=== PATIENT | male | born 1980 | race Two or more races ===

== ENCOUNTER 2017-09-01 08:40 | Emergency (ER) | payer SELFPAY ==
[2017-09-01] MEDS: HYDROcodone/APAP 5/325MG 1 TAB TABLET PO (10:14)
[2017-09-01] MEDS: IBUPROFEN 800 MG TABLET. PO (10:15)
== END 2017-09-01 10:42 | disposition home or self-care (01) ==
LOC: ER 08:40
DX: S09.93XA Unspecified injury of face, initial encounter (principal); X58.XXXA Exposure to other specified factors, initial encounter; Y93.89 Activity, other specified; Y99.8 Other external cause status; Y92.89 Other specified places as the place of occurrence of the external cause
CPT/HCPCS: 99283

== ENCOUNTER 2020-09-17 10:06 | Emergency (ER) | payer SELFPAY ==
[~2020-09-17] VITALS: Ht 175.3 cm; Wt 136.0 kg
[~2020-09-17 10:06] MED LIST: AMOX500C PO; HYDR-3164 PO
--- NOTE | 2020-09-17 10:27 | ED.ADGEN ---
Past Medical History Past Medical History: No Pertinent History Past Surgical History: No Surgical History Smoking Status: Current Every Day Smoker Alcohol Use: None Drug Use: None General Adult EDM: Chief Complaint: FLANK PAIN HPI: HPI: Patient is a 40 year old male coming in for left lower quadrant abdominal pain that woke her from sleep at 0330, patient then had some small loose bowel moveme nts and went back to sleep. Woke up again hours later with the pain. States he vomited one time that was nonbloody or bilious after he was try to make himself belch. Patient had dark-colored urine today, states he denies any dysuria or hematuria. Patient denies any history of kidney stones. Patient states the pain when he gets worse occasionally radiates to the testicles but denies any testicular pain at this time. No fevers or known sick contacts. No prior history of abdominal surgeries. States his last normal bowel movement was yesterday. Review of Systems: Review of Systems: All other systems within normal limits except for as noted in the HPI Current Medications: Current Medications Medications (Trade) Dose Ordered Sig/Oralia Start Time Stop Time Status Last Admin Dose Admin Info (CONTRAST GIVEN -- Rx MONITORING) 1 each PRN DAILY PRN 09/17/20 11:15 09/19/20 11:14 Iohexol (Omnipaque 300 Mg/ml) 75 ml 1X ONCE 09/17/20 11:00 09/17/20 11:02 DC 09/17/20 11:00 75 ML Ketorolac Tromethamine (Toradol 15mg Vial) 15 mg 1X ONCE 09/17/20 10:30 09/17/20 10:31 DC 09/17/20 10:53 15 MG Allergies: Allergies: Allergies Coded Allergies Type Severity Reaction Last Updated Verified No Known Drug Allergies 09/01/17 No Physical Exam: PE: Constitutional: Well developed, well nourished, no acute distress, non-toxic appearance. [] HENT: Normocephalic, atraumatic, bilateral external ears normal, nose normal. [] Eyes: PERRLA, conjunctiva normal, no discharge. [] Neck: No rigidity, supple, no stridor. [] Cardiovascular: Regular rate and rhythm, brisk cap refill [] Lungs & Thorax: Non labored symmetric respirations, no tachypnea or respiratory distress [] Abdomen: Soft, nondistended, left lower quadrant tenderness right above inguinal crease. No rebound tenderness. Normal testicular exam.. Skin: Warm, dry, no erythema, no rash. [] Back: Unremarkable Extremities: No deformities, range of motion grossly intact, no lower extremity edema [] Neurologic: Alert and oriented X 3, no focal deficits noted. [] Psychologic: Affect normal, judgement normal, mood normal. [] Current Patient Data: Labs: Laboratory Tests Test 09/17/20 10:05 09/17/20 10:24 Urine Collection Type Unknown Urine Color Brown Urine Clarity Turbid Urine pH (<5.0-8.0) Urine Specific [place] (1.000-1.030) Urine Protein mg/dL (NEG-TRACE) Urine Glucose (UA) mg/dL (NEG) Urine Ketones (Stick) mg/dL (NEG) Urine Blood (NEG) Urine Nitrite (NEG) Urine Bilirubin (NEG) Urine Urobilinogen Dipstick mg/dL (0.2 mg/dL) Urine Leukocyte Esterase (NEG) Urine RBC Tntc /HPF (0-2) Urine WBC 11-20 /HPF (0-4) Urine Squamous Epithelial Cells Few /LPF Urine Bacteria Few /HPF (0-FEW) Urine Mucus Mod /LPF White Blood Count 15.6 x10^3/uL (4.0-11.0) H Red Blood Count 4.58 x10^6/uL (4.30-5.70) Hemoglobin 14.0 g/dL (13.0-17.5) Hematocrit 40.3 % (39.0-53.0) Mean Corpuscular Volume 88 fL (79-100) Mean Corpuscular Hemoglobin 31 pg (25-35) Mean Corpuscular Hemoglobin Concent 35 g/dL (31-37) Red Cell Distribution Width 13.6 % (11.5-14.5) Platelet Count 303 x10^3/uL (140-400) Neutrophils (%) (Auto) 78 % (31-73) H Lymphocytes (%) (Auto) 14 % (24-48) L Monocytes (%) (Auto) 6 % (0-9) Eosinophils (%) (Auto) 1 % (0-3) Basophils (%) (Auto) 1 % (0-3) Neutrophils # (Auto) 12.1 x10^3/uL (1.8-7.7) H Lymphocytes # (Auto) 2.2 x10^3/uL (1.0-4.8) Monocytes # (Auto) 0.9 x10^3/uL (0.0-1.1) Eosinophils # (Auto) 0.2 x10^3/uL (0.0-0.7) Basophils # (Auto) 0.1 x10^3/uL (0.0-0.2) Sodium Level 143 mmol/L (136-145) Potassium Level 3.5 mmol/L (3.5-5.1) Chloride Level 106 mmol/L (98-107) Carbon Dioxide Level 28 mmol/L (21-32) Anion Gap 9 (6-14) Blood Urea Nitrogen 10 mg/dL (8-26) Creatinine 0.9 mg/dL (0.7-1.3) Estimated GFR (Cockcroft-Gault) 93.9 BUN/Creatinine Ratio 11 (6-20) Glucose Level 128 mg/dL (70-99) H Calcium Level 8.8 mg/dL (8.5-10.1) Total Bilirubin 0.4 mg/dL (0.2-1.0) Aspartate Amino Transferase (AST) 20 U/L (15-37) Alanine Aminotransferase (ALT) 30 U/L (16-63) Alkaline Phosphatase 123 U/L (46-116) H Total Protein 7.9 g/dL (6.4-8.2) Albumin 3.9 g/dL (3.4-5.0) Albumin/Globulin Ratio 1.0 (1.0-1.7) Lipase 54 U/L (73-393) L Laboratory Tests 09/17/20 10:24 Laboratory Tests 09/17/20 10:24 Vital Signs: Vital Signs Date Time Temp Pulse Resp B/P (MAP) Pulse Ox O2 Delivery O2 Flow Rate FiO2 09/17/20 11:43 86 158/81 (106) Room Air 09/17/20 10:55 98 09/17/20 10:12 97.9 22 97.9 EKG: EKG: [] Heart Score: C/O Chest Pain: No Risk Factors: Risk Factors: DM, Current or recent (<one month) smoker, HTN, HLP, family history of CAD, obesity. Risk Scores: Score 0 - 3: 2.5% MACE over next 6 weeks - Discharge Home Score 4 - 6: 20.3% MACE over next 6 weeks - Admit for Clinical Observation Score 7 - 10: 72.7% MACE over next 6 weeks - Early Invasive Strategies Radiology/Procedures: Radiology/Procedures: [facility] [address] [place] [address] IMAGING REPORT Signed PATIENT: MERCEDES JAMES ACCOUNT: [id number] : 1980 LOCATION: ER AGE: 40 SEX: M EXAM STATUS: REG ER ORD. PHYSICIAN: AVINASH PUTNAM MD REASON: LLQ pain PROCEDURE: CT ABD PELV W/ IV CONTRST ONLY EXAM: CT ABDOMEN/PELVIS WITH CONTRAST. HISTORY: Left lower quadrant pain. TECHNIQUE: Computed tomography of the abdomen and pelvis was performed after the intravenous administration of iodinated contrast. One or more of the following individualized dose reduction techniques were utilized for this examination: 1. Automated exposure control. 2. Adjustment of the mA and/or kV according to patient size. 3. Use of iterative reconstruction technique. COMPARISON: None. FINDINGS: Lung windows through the visualized portions of the bases reveal mild atelectasis. Bone windows reveal no suspicious lesions. Central canal stenosis appears moderate to severe at L5-S1. The liver, gallbladder, pancreas, adrenal glands, and spleen are unremarkable. There are no pathologically enlarged lymph nodes. A left distal ureteral calculus 1 cm proximal to the ureterovesical junction measures 3.5 mm. There is mild left pelvic caliectasis. Slightly delayed perfusion of the left kidney indicates a component of acute obstruction. Small left renal cysts appear benign and measure up to 1.8 cm. The right kidney is unr emarkable. Sigmoid diverticulosis is moderate. There is no small bowel obstruction. A small supraumbilical hernia contains only fat. IMPRESSION: 1. 3.5 mm left distal ureteral calculus with mild proximal obstructive findings. 2. Small supraumbilical hernia containing only fat. 3. Central canal stenosis appears at least moderate/severe at L5-S1. Electronically signed by: Alfred Babin MD (09/17/2020 11:42 AM) [id number] DICTATED and SIGNED BY: NOAM BABIN MD DATE: 09/17/20 [id number] 0 [] Course & Med Decision Making: Course & Med Decision Making Pertinent Labs and Imaging studies reviewed. (See chart for details) [] Holly Disclaimer: Holly Disclaimer: This electronic medical record was generated, in whole or in part, using a voice recognition dictation system. Departure Departure Impression: Primary Impression: Urolithiasis Disposition: HOME / SELF CARE / HOMELESS Condition: STABLE Referrals: NO PCP (PCP) Patient Instructions: Kidney Stones Additional Instructions: Follow-up with [facility] Call to draw an appointment at [phone] Scripts Hydrocodone Bit/Acetaminophen (HYDROCODONE-APAP 5-325 ) 1 Tab Tablet 1 TAB PO PRN Q6HRS PRN for PAIN for 5 Days, #15 TAB 0 Refills Prov: AVINASH PUTNAM MD 09/17/20 Ibuprofen (IBUPROFEN) 800 Mg Tablet 800 MG PO PRN Q6HRS PRN for PAIN, #30 TAB Prov: AVINASH PUTNAM MD 09/17/20 Tamsulosin Hcl (FLOMAX) 0.4 Mg Cap.er.24h 1 CAP PO DAILY for kidney stone, #30 CAP 11 Refills Prov: AVINASH PUTNAM MD 09/17/20 Ondansetron (ONDANSETRON ODT) 4 Mg Tab.rapdis 1 TAB PO PRN Q6-8HRS PRN for NAUSEA for 3 Days, #10 TAB Prov: AVINASH PUTNAM MD 09/17/20 AVINASH PUTNAM MD Sep 17, 2020 10:27
[2020-09-17] MEDS ORDERED: KETOROLAC 15 MG/ML VIAL. IVP ONE (10:30)
[2020-09-17 10:33] LABS: BASO # 0.1 x10^3/uL (0.0-0.2); BASO % 1 % (0-3); EOS # 0.2 x10^3/uL (0.0-0.7); EOS % 1 % (0-3); HEMATOCRIT 40.3 % (39.0-53.0); LYMPH # 2.2 x10^3/uL (1.0-4.8); LYMPH % 14 % (24-48); MEAN CORPUSCULAR HEMOGLOBIN 31 pg (25-35); MEAN CORPUSCULAR HGB CONC 35 g/dL (31-37); MEAN CORPUSCULAR VOLUME 88 fL (79-100); MONO # 0.9 x10^3/uL (0.0-1.1); MONO % 6 % (0-9); NEUT # 12.1 x10^3/uL (1.8-7.7); NEUT % 78 % (31-73); PLATELET COUNT 303 x10^3/uL (140-400); RED BLOOD COUNT 4.58 x10^6/uL (4.30-5.70); RED CELL DISTRIBUTION WIDTH 13.6 % (11.5-14.5); WHITE BLOOD COUNT 15.6 x10^3/uL (4.0-11.0)
[2020-09-17 10:41] LABS: CALCIUM 8.8 mg/dL (8.5-10.1); CREATININE 0.9 mg/dL (0.7-1.3); GFR 93.9; POTASSIUM 3.5 mmol/L (3.5-5.1)
[2020-09-17 10:45] LABS: CLARITY,URINE TURBID; COLOR,URINE BROWN
[2020-09-17 10:47] LABS: ALBUMIN 3.9 g/dL (3.4-5.0); TOTAL BILIRUBIN 0.4 mg/dL (0.2-1.0); TOTAL PROTEIN 7.9 g/dL (6.4-8.2)
[2020-09-17 10:47] LABS: RBC,URINE TNTC /HPF (0-2)
[2020-09-17 10:48] LABS: BACTERIA,URINE FEW /HPF (0-FEW)
[2020-09-17] MEDS ORDERED: IOHEXOL 300 MG/ML 100ML VIAL. IV ONE (11:00)
[2020-09-17] MEDS ORDERED: CONTRAST GIVEN. MC PRN (11:15)
--- NOTE | 2020-09-17 11:44 | RAD ---
EXAM: CT ABDOMEN/PELVIS WITH CONTRAST. HISTORY: Left lower quadrant pain. TECHNIQUE: Computed tomography of the abdomen and pelvis was performed after the intravenous administ ration of iodinated contrast. One or more of the following individualized dose reduction techniques w ere utilized for this examination: 1. Automated exposure control. 2. Adjustment of the mA and/or kV according to patient size. 3. Use of iterative reconstruction technique. COMPARISON: None. FINDINGS: Lung windows through the visualized portions of the bases reveal mild atelectasis. Bone win dows reveal no suspicious lesions. Central canal stenosis appears moderate to severe at L5-S1. The liver, gallbladder, pancreas, adrenal glands, and spleen are unremarkable. There are no pathologi sunni enlarged lymph nodes. A left distal ureteral calculus 1 cm proximal to the ureterovesical junction measures 3.5 mm. There i s mild left pelvic caliectasis. Slightly delayed perfusion of the left kidney indicates a component o f acute obstruction. Small left renal cysts appear benign and measure up to 1.8 cm. The right kidney is unremarkable. Sigmoid diverticulosis is moderate. There is no small bowel obstruction. A small supraumbilical herni a contains only fat. IMPRESSION: 1. 3.5 mm left distal ureteral calculus with mild proximal obstructive findings. 2. Small supraumbilical hernia containing only fat. 3. Central canal stenosis appears at least moderate/severe at L5-S1. Electronically signed by: Alfred Babin MD (09/17/2020 11:42 AM) [id number]
[2020-09-17] MEDS ORDERED: TAMSULOSIN 0.4 MG CAP.ER.24H. PO ONE (12:00)
[2020-09-17] MEDS ORDERED: ONDA4TAB12 PO (12:08)
[2020-09-17] MEDS ORDERED: IBUP-1060 PO (12:08)
[2020-09-17] MEDS ORDERED: TAMS0.4C97 PO (12:08)
[2020-09-17] MEDS ORDERED: HYDR-2761 PO (12:08)
[2020-09-17 12:13] VITALS: BP 164/84
[2020-09-17] MEDS ORDERED: fentaNYL PF VIAL 100 MCG/2 ML VIAL IVP ONE (12:30)
== END 2020-09-17 12:35 | disposition home or self-care (01) ==
LOC: ER 10:06
DX: N20.9 Urinary calculus, unspecified (principal); R11.10 Vomiting, unspecified; R19.7 Diarrhea, unspecified; F17.200 Nicotine dependence, unspecified, uncomplicated
CPT/HCPCS: 36415; 74177; 80053; 81001; 83690; 85025; 87086; 96374; 96375; 99285; J1885; J3010; Q9967